=== PATIENT | male | born 1965 | race Caucasian/White ===

== ENCOUNTER 2016-07-19 18:03 | Emergency (ER) | payer MEDICARE, OTHER ==
[~2016-07-19] VITALS: Ht 175.3 cm; Wt 81.8 kg
[2016-07-19] MEDS ORDERED: SANDOSTATI100 MCG/ML SQ (18:26)
[2016-07-19 18:28] LABS: BASO % 0.3 % (0.0-2.0); EOS % 0.2 % (0-4.0); GRAN # 9.9 (1.4-6.5); GRAN % 77.8 % (42.2-75.2); HEMATOCRIT 45.2 % (42.0-52.0); HEMOGLOBIN 14.8 g/dl (13.5-18.0); LYMPH # 1.7 (1.2-3.4); LYMPH % 13.6 % (20.0-51.0); MEAN CELL VOLUME 101 fl (80.0-100.0); MEAN CORPUSCULAR HEMOGLOBIN 33 pg (27.0-31.0); MEAN CORPUSCULAR HGB CONC 33 g/dl (33.0-37.0); MEAN PLATELET VOLUME 9.4 fl (7.4-10.4); MONO % 7.6 % (1.7-9.3); PLATELET COUNT 364 K/mm3 (130-400); RED BLOOD COUNT 4.47 M/mm3 (4.20-5.60); REDCELL DISTRIBUTION WIDTH-CV 13.6 % (11.5-14.5); WHITE BLOOD COUNT 12.7 K/mm3 (4.8-10.8)
[2016-07-19 18:32] LABS: PH 5 (5-8); SQUAMOUS EPITHELIAL 0-2 /hpf; URINE APPEARANCE Clear; URINE BACTERIA Rare /hpf; URINE BILIRUBIN Negative (NEGATIVE); URINE BLOOD Negative (NEGATIVE); URINE COLOR Yellow; URINE GLUCOSE 1+ (NEGATIVE); URINE KETONE Negative (NEGATIVE); URINE RBC 0-2 /hpf; URINE UROBILINOGEN Negative (NEGATIVE); URINE WBC 0-2 /hpf
[2016-07-19] MEDS ORDERED: NORCO 325 MG-7.1 TAB PO (19:06)
[2016-07-19] MEDS ORDERED: PRAVACHOL 40MG40 MG PO (19:07)
[2016-07-19] MEDS ORDERED: B COMPLEX #11 TA1 PO (19:07)
[2016-07-19] MEDS ORDERED: ZYLOPRIM 100MG100 MG PO (19:08)
[2016-07-19] MEDS ORDERED: NEXIUM 40MG40 MG PO (19:08)
[2016-07-19] MEDS ORDERED: B-121000 MCG PO (19:09)
[2016-07-19] MEDS ORDERED: COREG 25MG25 MG/TAB PO (19:11)
[2016-07-19] MEDS ORDERED: SYNTHROID 0.0.025 MG PO (19:11)
[2016-07-19] MEDS ORDERED: PEPCID40 MG PO (19:11)
[2016-07-19] MEDS ORDERED: INSLANT (19:12)
[2016-07-19] MEDS ORDERED: JANUVIA 100MG100 MG PO (19:12)
[2016-07-19] MEDS ORDERED: COUMADIN4 MG PO (19:13)
[2016-07-19 20:13] LABS: INR 2.3 (0.8-3.0); PROTHROMBIN TIME 26.2 SECONDS (9.7-12.8)
[2016-07-19 20:17] VITALS: TEMP 96.5
[2016-07-19 20:22] LABS: ADJUSTED CALCIUM 8.9 mg/dL (8.4-10.2); ALBUMIN 3.6 gm/dL (3.5-5.0); BILIRUBIN,TOTAL 0.8 mg/dL (0.0-1.0); CALCIUM 8.6 mg/dL (8.4-10.2); POTASSIUM 4.4 mmol/L (3.4-5.0); TOTAL PROTEIN 7.2 gm/dL (6.4-8.2)
[2016-07-19 20:45] VITALS: BP 117/63; PULSE 73
[2016-10-09] MEDS ORDERED: XARELTO10 MG (10:33)
[2016-10-09] MEDS ORDERED: COREG 6.256.25 MG/TA PO (10:34)
[2016-10-10] MEDS ORDERED: XARELTO10 MG PO (09:46)
[2016-10-10] MEDS ORDERED: NEXIUM 40MG40 MG PO (09:47)
== END 2016-07-19 21:06 | disposition home or self-care (01) ==
LOC: COL.ER 18:03
PROVIDERS: Emergency Medicine
DX: E16.1 Other hypoglycemia (principal); R55 Syncope and collapse; R41.0 Disorientation, unspecified; S06.899A Other specified intracranial injury with loss of consciousness of unspecified duration, initial encounter; W18.39XA Other fall on same level, initial encounter; Y92.091 Bathroom in other non-institutional residence as the place of occurrence of the external cause
CPT/HCPCS: J1170; J2354; J2405; J7030; J7042

== ENCOUNTER 2016-08-03 01:34 | Emergency (ER) | payer MEDICARE, OTHER ==
[2016-08-03 01:34] VITALS: TEMP 97.2
[~2016-08-03 01:34] MED LIST: B COMPLEX #11 TA1 PO; B-121000 MCG PO; COREG 25MG25 MG/TAB PO; COUMADIN4 MG PO; INSLANT; JANUVIA 100MG100 MG PO; NEXIUM 40MG40 MG PO; NORCO 325 MG-7.1 TAB PO; PEPCID40 MG PO; PRAVACHOL 40MG40 MG PO; SANDOSTATI100 MCG/ML SQ; SYNTHROID 0.0.025 MG PO; ZYLOPRIM 100MG100 MG PO
[2016-08-03 02:42] LABS: BASO % 0.4 % (0.0-2.0); EOS % 0.1 % (0-4.0); GRAN # 5.7 (1.4-6.5); GRAN % 80.4 % (42.2-75.2); HEMATOCRIT 42.2 % (42.0-52.0); HEMOGLOBIN 13.6 g/dl (13.5-18.0); LYMPH # 0.9 (1.2-3.4); LYMPH % 12.9 % (20.0-51.0); MEAN CELL VOLUME 103 fl (80.0-100.0); MEAN CORPUSCULAR HEMOGLOBIN 33 pg (27.0-31.0); MEAN CORPUSCULAR HGB CONC 32 g/dl (33.0-37.0); MEAN PLATELET VOLUME 10.1 fl (7.4-10.4); MONO # 0.4 (0.1-0.6); MONO % 5.9 % (1.7-9.3); PLATELET COUNT 185 K/mm3 (130-400); REDCELL DISTRIBUTION WIDTH-CV 14.2 % (11.5-14.5); WHITE BLOOD COUNT 7.1 K/mm3 (4.8-10.8)
[2016-08-03 02:49] LABS: INR 2.7 (0.8-3.0); PROTHROMBIN TIME 31.2 SECONDS (9.7-12.8)
[2016-08-03 02:55] LABS: ADJUSTED CALCIUM 9.4 mg/dL (8.4-10.2); ALBUMIN 3.5 gm/dL (3.5-5.0); BILIRUBIN,TOTAL 0.7 mg/dL (0.0-1.0); CREATININE, serum 1.08 mg/dL (0.66-1.25); POTASSIUM 4.5 mmol/L (3.4-5.0); TOTAL PROTEIN 6.9 gm/dL (6.4-8.2)
[2016-08-03 03:06] LABS: TROPONIN-I 0.015 ng/mL (0.000-0.034)
[2016-08-03 03:11] LABS: PROLACTIN 15.9 ng/mL (3.7-17.9)
[2016-08-03 04:53] VITALS: BP 144/91; PULSE 61
[2016-10-09] MEDS ORDERED: XARELTO10 MG (10:33)
[2016-10-09] MEDS ORDERED: COREG 6.256.25 MG/TA PO (10:34)
[2016-10-10] MEDS ORDERED: XARELTO10 MG PO (09:46)
[2016-10-10] MEDS ORDERED: NEXIUM 40MG40 MG PO (09:47)
== END 2016-08-03 05:10 | disposition home or self-care (01) ==
LOC: COL.ER 01:34
PROVIDERS: Nurse Practitioner
DX: E11.649 Type 2 diabetes mellitus with hypoglycemia without coma (principal); Z79.84 Long term (current) use of oral hypoglycemic drugs; I25.10 Atherosclerotic heart disease of native coronary artery without angina pectoris; Z95.5 Presence of coronary angioplasty implant and graft; Z79.01 Long term (current) use of anticoagulants

== ENCOUNTER → 2016-08-07 | Outpatient (REF) ==
[~2016-08-07] MED LIST changes: +AMBIEN 5MG TABLE5 MG PO; +COREG 6.256.25 MG/TA PO; +GLUCOPHAGE1000 MG PO; +NORCO 325 MG-101 TAB PO; +NORVASC 5MG5 MG/TAB PO; +PHENERGAN 25 TA25 MG PO; +PRINIVIL5 MG PO; +SANDOSTATI200 MCG/ML IJ; +XARELTO10 MG; +XARELTO10 MG PO; +[UNRECOGNIZED DRUG - OTHER] PO
[2016-08-07 16:40] LABS: C-REACTIVE PROTEIN < 0.5 mg/dL (0.0-0.9)
== END ==
LOC: ZLAB.WCH 16:10
PROVIDERS: Internal Medicine
DX: Z01.89 Encounter for other specified special examinations (principal)

== ENCOUNTER → 2016-08-13 | Outpatient (REF) ==
[2016-08-13 16:49] LABS: TOTAL IRON BINDING CAPACITY 263 ug/dL (261-462)
[2016-08-13 17:15] LABS: FERRITIN 142 ng/mL (18-464)
== END ==
LOC: ZLAB.WCH 15:57
PROVIDERS: Internal Medicine
DX: Z01.89 Encounter for other specified special examinations (principal)

== ENCOUNTER → 2016-09-22 | Outpatient (REF) | LOC: ZLAB.WCH 11:28 | DX: Z01.89 Encounter for other specified special examinations (principal) ==

== ENCOUNTER → 2016-10-01 | Outpatient (REF) | LOC: ZLAB.WCH 14:53 | DX: Z01.89 Encounter for other specified special examinations (principal) ==

== ENCOUNTER → 2016-10-10 | Outpatient (CLI) | payer MEDICARE, OTHER ==
[~2016-10-10] VITALS: Ht 177.8 cm; Wt 81.6 kg
[2016-10-10 09:57] VITALS: BP 133/84; PULSE 69
[2016-10-10 10:45] VITALS: BP 137/78; PULSE 64
== END ==
LOC: COL.RAD 09:32
DX: D48.1 Neoplasm of uncertain behavior of connective and other soft tissue (principal)
CPT/HCPCS: 25757

== ENCOUNTER → 2016-10-31 | Outpatient (CLI) | payer MEDICARE, OTHER | LOC: COL.RAD 08:15 | DX: C4A.9 Merkel cell carcinoma, unspecified (principal); R42 Dizziness and giddiness | CPT/HCPCS: A9585 ==

== ENCOUNTER 2016-11-06 11:14 | Day surgery (SDC) | payer MEDICARE, OTHER ==
[2016-11-06] VITALS (8 sets, daily range): BP systolic 135–174; BP diastolic 73–86; PULSE 18–72; TEMP 98–98.4
[~2016-11-06] VITALS: Ht 179.1 cm; Wt 86.9 kg
[~2016-11-06 11:14] MED LIST changes: -AMBIEN 5MG TABLE5 MG PO; -GLUCOPHAGE1000 MG PO; -NORCO 325 MG-101 TAB PO; -NORVASC 5MG5 MG/TAB PO; -PHENERGAN 25 TA25 MG PO; -PRINIVIL5 MG PO; -SANDOSTATI200 MCG/ML IJ; -[UNRECOGNIZED DRUG - OTHER] PO
[2016-11-06] MEDS ORDERED: NORCO 325 MG-101 TAB PO (12:14)
[2016-11-06] MEDS ORDERED: PRINIVIL5 MG PO (12:20)
[2016-11-06] MEDS ORDERED: GLUCOPHAGE1000 MG PO (12:21)
[2016-11-06] MEDS ORDERED: [UNRECOGNIZED DRUG - OTHER] PO (12:22)
[2016-11-06] MEDS ORDERED: AMBIEN 5MG TABLE5 MG PO (12:24)
[2016-11-06] MEDS ORDERED: SANDOSTATI200 MCG/ML IJ (18:10)
[2016-11-07 02:47] VITALS: BP 163/85; PULSE 63; TEMP 97.2
[2016-11-07 04:49] VITALS: BP 15/57; BP 155/57; PULSE 54; TEMP 97.6
[2016-11-07 10:06] VITALS: BP 161/97; PULSE 57; TEMP 97.6
== END 2016-11-07 12:31 | disposition home or self-care (01) ==
LOC: SDCO 11:14 → SURG 17:22 → SDCO 11-07 12:31
DX: C7B.1 Secondary Merkel cell carcinoma (principal); C80.1 Malignant (primary) neoplasm, unspecified; K57.30 Diverticulosis of large intestine without perforation or abscess without bleeding; I10 Essential (primary) hypertension; E11.8 Type 2 diabetes mellitus with unspecified complications; Z79.84 Long term (current) use of oral hypoglycemic drugs; K21.9 Gastro-esophageal reflux disease without esophagitis; E78.00 Pure hypercholesterolemia, unspecified; E07.9 Disorder of thyroid, unspecified; Z80.42 Family history of malignant neoplasm of prostate
CPT/HCPCS: OP; J0360; J0690; J1100; J1170; J2354; J2405; J2704; J3010; J7030

== ENCOUNTER → 2016-11-23 | Outpatient (CLI) | payer MEDICARE, OTHER ==
[~2016-11-23] VITALS: Ht 179.1 cm; Wt 81.6 kg
[~2016-11-23] MED LIST changes: +AMBIEN 5MG TABLE5 MG PO; +GLUCOPHAGE1000 MG PO; +NORCO 325 MG-101 TAB PO; +NORVASC 5MG5 MG/TAB PO; +PHENERGAN 25 TA25 MG PO; +PRINIVIL5 MG PO; +SANDOSTATI200 MCG/ML IJ; +[UNRECOGNIZED DRUG - OTHER] PO
== END ==
LOC: COL.RAD 14:08 → SUN.DT 14:08
DX: K91.1 Postgastric surgery syndromes (principal); Z98.84 Bariatric surgery status; Z71.3 Dietary counseling and surveillance

== ENCOUNTER → 2017-02-07 | Outpatient (CLI) | payer MEDICARE, OTHER | LOC: ZCOL.LAB 15:38 | DX: Z01.89 Encounter for other specified special examinations (principal) ==

== ENCOUNTER 2017-02-11 10:00 | Outpatient (RCR) | payer MEDICARE, OTHER ==
[2017-02-07 10:03] VITALS: BP 149/85; PULSE 85; TEMP 97.5
[2017-02-08 09:05] VITALS: BP 138/91; PULSE 78; TEMP 97.8
[~2017-02-11] VITALS: Ht 180.3 cm; Wt 80.3 kg
[2017-02-11 09:20] VITALS: BP 146/77; PULSE 70; TEMP 97.7
[~2017-02-11 10:00] MED LIST changes: -NORVASC 5MG5 MG/TAB PO; -PHENERGAN 25 TA25 MG PO
== END 2017-02-15 10:45 | disposition home or self-care (01) ==
LOC: EUO 10:00
DX: Z01.812 Encounter for preprocedural laboratory examination (principal); E11.9 Type 2 diabetes mellitus without complications; C4A.62 Merkel cell carcinoma of left upper limb, including shoulder; E46 Unspecified protein-calorie malnutrition; G62.9 Polyneuropathy, unspecified; K91.1 Postgastric surgery syndromes; L97.519 Non-pressure chronic ulcer of other part of right foot with unspecified severity; E86.0 Dehydration; Z86.14 Personal history of Methicillin resistant Staphylococcus aureus infection; Z95.828 Presence of other vascular implants and grafts
CPT/HCPCS: C1751; C1894; J1644; J7120

== ENCOUNTER → 2017-03-05 | Outpatient (REF) ==
[~2017-03-05] MED LIST changes: +NORVASC 5MG5 MG/TAB PO; +PHENERGAN 25 TA25 MG PO
[2017-03-05 11:31] LABS: PSA-TOTAL 1.6 ng/mL (0-4); THYROID STIMULATING HORMONE 1.38 uIU/mL (0.465-4.680)
== END ==
LOC: ZLAB.WCH 10:40
PROVIDERS: Internal Medicine
DX: Z01.89 Encounter for other specified special examinations (principal)
CPT/HCPCS: G0103

== ENCOUNTER 2017-03-24 18:38 | Emergency (ER) | payer MEDICARE, OTHER ==
[~2017-03-24] VITALS: Ht 177.8 cm; Wt 77.3 kg
[~2017-03-24 18:38] MED LIST changes: -NORVASC 5MG5 MG/TAB PO; -PHENERGAN 25 TA25 MG PO
[2017-03-24 18:47] VITALS: TEMP 97.9
[2017-03-24 19:22] LABS: BASO % 0.5 % (0.0-2.0); EOS % 0.5 % (0-4.0); GRAN # 5.1 (1.4-6.5); GRAN % 76.3 % (42.2-75.2); HEMATOCRIT 34.3 % (42.0-52.0); HEMOGLOBIN 11.1 g/dl (13.5-18.0); LYMPH # 0.9 (1.2-3.4); LYMPH % 13.1 % (20.0-51.0); MEAN CELL VOLUME 106 fl (80.0-100.0); MEAN CORPUSCULAR HEMOGLOBIN 34 pg (27.0-31.0); MEAN CORPUSCULAR HGB CONC 32 g/dl (33.0-37.0); MEAN PLATELET VOLUME 8.6 fl (7.4-10.4); MONO # 0.6 (0.1-0.6); MONO % 8.7 % (1.7-9.3); PLATELET COUNT 223 K/mm3 (130-400); RED BLOOD COUNT 3.24 M/mm3 (4.20-5.60); REDCELL DISTRIBUTION WIDTH-CV 12.6 % (11.5-14.5); WHITE BLOOD COUNT 6.6 K/mm3 (4.8-10.8)
[2017-03-24 19:32] LABS: ADJUSTED CALCIUM 9.5 mg/dL (8.4-10.2); ALBUMIN 3.4 gm/dL (3.5-5.0); BILIRUBIN,TOTAL 0.7 mg/dL (0.0-1.0); CREATININE, serum 1.17 mg/dL (0.66-1.25); MAGNESIUM 1.4 mg/dL (1.6-2.3); PHOSPHOROUS 4.1 mg/dL (2.5-4.5); POTASSIUM 4.5 mmol/L (3.4-5.0); TOTAL PROTEIN 6.4 gm/dL (6.4-8.2)
[2017-03-24 20:56] LABS: PH 5 (5-8); SQUAMOUS EPITHELIAL 0-2 /hpf; URINE APPEARANCE Clear; URINE BACTERIA None Seen /hpf; URINE BILIRUBIN Negative (NEGATIVE); URINE BLOOD Negative (NEGATIVE); URINE COLOR Yellow; URINE GLUCOSE Negative (NEGATIVE); URINE KETONE Negative (NEGATIVE); URINE RBC 0-2 /hpf; URINE UROBILINOGEN Negative (NEGATIVE); URINE WBC 0-2 /hpf
[2017-03-24] MEDS ORDERED: PHENERGAN 25 TA25 MG PO (22:47)
[2017-03-24] MEDS ORDERED: NORVASC 5MG5 MG/TAB PO (23:11)
[2017-03-24 23:41] VITALS: BP 176/95; PULSE 64
== END 2017-03-24 23:43 | disposition home or self-care (01) ==
LOC: COL.ER 18:38
PROVIDERS: Emergency Medicine
DX: R11.2 Nausea with vomiting, unspecified (principal); E86.0 Dehydration; I10 Essential (primary) hypertension; Z79.84 Long term (current) use of oral hypoglycemic drugs; Z98.890 Other specified postprocedural states; Z85.821 Personal history of Merkel cell carcinoma
CPT/HCPCS: J2405; J7030

== ENCOUNTER 2017-09-05 11:30 | Outpatient (RCR) | payer MEDICARE, BC ==
[~2017-09-05 11:30] MED LIST changes: +NORVASC 5MG5 MG/TAB PO; +PHENERGAN 25 TA25 MG PO
[2017-09-11] MEDS ORDERED: SANDOSTATI100 MCG/ML IJ (14:23)
[2017-09-11] MEDS ORDERED: ARYMO ER30 MG PO (14:27)
[2017-09-11] MEDS ORDERED: DESYREL 50MG50 MG PO (14:28)
[2017-09-11] MEDS ORDERED: KLONOPIN 1MG1 MG PO (14:29)
[2017-09-11] MEDS ORDERED: LEXAPRO 10MG10 MG PO (14:30)
[2017-09-13] MEDS ORDERED: ASPIRIN 81M81 MG/TA2 PO (17:55)
[2017-09-13] MEDS ORDERED: BRILINTA90 MG PO (17:55)
== END 2017-10-23 ==
LOC: MKS.ESL.PT
DX: G63 Polyneuropathy in diseases classified elsewhere (principal); R27.0 Ataxia, unspecified; E11.610 Type 2 diabetes mellitus with diabetic neuropathic arthropathy; R53.1 Weakness
CPT/HCPCS: G8978-GP; G8979-GP; G8987-GO; G8988-GO; G8989-GO

== ENCOUNTER 2017-09-13 14:45 | Emergency (ER) | payer MEDICARE, BC ==
[~2017-09-13] VITALS: Ht 177.8 cm; Wt 72.3 kg
[~2017-09-13 14:45] MED LIST changes: +ARYMO ER30 MG PO; +DESYREL 50MG50 MG PO; +KLONOPIN 1MG1 MG PO; +LEXAPRO 10MG10 MG PO; +SANDOSTATI100 MCG/ML IJ
[2017-09-13 16:15] LABS: BASO % 0.5 % (0.0-2.0); EOS % 0.2 % (0-4.0); GRAN # 4.5 (1.4-6.5); GRAN % 79.2 % (42.2-75.2); LYMPH # 0.5 (1.2-3.4); LYMPH % 8.5 % (20.0-51.0); MEAN CELL VOLUME 104 fl (80.0-100.0); MEAN CORPUSCULAR HGB CONC 33 g/dl (33.0-37.0); MEAN PLATELET VOLUME 9.7 fl (7.4-10.4); MONO # 0.6 (0.1-0.6); MONO % 10.6 % (1.7-9.3); PLATELET COUNT 193 K/mm3 (130-400); RED BLOOD COUNT 3.09 M/mm3 (4.20-5.60); REDCELL DISTRIBUTION WIDTH-CV 13.1 % (11.5-14.5)
[2017-09-13 16:19] LABS: INR 1.3 (0.8-3.0); PROTHROMBIN TIME 14.8 SECONDS (9.7-12.8)
[2017-09-13 16:22] LABS: HEMATOCRIT 32.2 % (42.0-52.0); HEMOGLOBIN 10.7 g/dl (13.5-18.0); MEAN CORPUSCULAR HEMOGLOBIN 35 pg (27.0-31.0)
[2017-09-13 16:23] LABS: ALBUMIN 2.6 gm/dL (3.5-5.0); BILIRUBIN,TOTAL 0.4 mg/dL (0.0-1.0); CREATININE, serum 1.13 mg/dL (0.66-1.25); POTASSIUM 3.9 mmol/L (3.4-5.0); TOTAL PROTEIN 5.1 gm/dL (6.4-8.2)
[2017-09-13 16:42] LABS: TROPONIN-I 1.35 ng/mL (0.000-0.034)
[2017-09-13] MEDS ORDERED: BRILINTA90 MG PO (17:55)
[2017-09-13] MEDS ORDERED: ASPIRIN 81M81 MG/TA2 PO (17:55)
[2017-09-13 19:30] VITALS: BP 120/87; PULSE 75; TEMP 97.1
== END 2017-09-13 19:10 | disposition short-term general hospital (02) ==
LOC: COL.ER 14:45
PROVIDERS: Emergency Medicine
DX: D64.9 Anemia, unspecified (principal); R07.89 Other chest pain; R55 Syncope and collapse; E11.9 Type 2 diabetes mellitus without complications; I10 Essential (primary) hypertension; I25.10 Atherosclerotic heart disease of native coronary artery without angina pectoris; I25.2 Old myocardial infarction; Z86.718 Personal history of other venous thrombosis and embolism; Z95.5 Presence of coronary angioplasty implant and graft; Z98.84 Bariatric surgery status; Z79.82 Long term (current) use of aspirin; Z79.02 Long term (current) use of antithrombotics/antiplatelets
CPT/HCPCS: J2060; J2405; J3010; J7040

== ENCOUNTER → 2017-09-26 | Outpatient (REF) ==
[~2017-09-26] MED LIST changes: +ASPIRIN 81M81 MG/TA2 PO; +BRILINTA90 MG PO
[2017-09-26 09:27] LABS: COLLECTION METHOD CLEAN CATCH
[2017-09-26 09:38] LABS: MUCOUS Present /lpf; PH 5 (5-8); SQUAMOUS EPITHELIAL None Seen /hpf; URINE APPEARANCE Clear; URINE BACTERIA Rare /hpf; URINE BILIRUBIN Negative (NEGATIVE); URINE BLOOD Negative (NEGATIVE); URINE COLOR Yellow; URINE GLUCOSE Negative (NEGATIVE); URINE KETONE Negative (NEGATIVE); URINE LEUKOCYTE ESTERASE Negative (NEGATIVE); URINE NITRATE Negative (NEGATIVE); URINE PROTEIN(semi-quant) Negative (NEGATIVE); URINE RBC 0-2 /hpf; URINE UROBILINOGEN Negative (NEGATIVE)
== END ==
LOC: ZLAB.STJ 09:26
PROVIDERS: Internal Medicine
DX: I30.9 Acute pericarditis, unspecified (principal)